=== PATIENT | female | born 1945 | race Caucasian/White ===

== ENCOUNTER 2017-01-17 10:05 | Outpatient (CLI) | payer MEDICARE, BC ==
[2017-01-17 10:45] LABS: CREATININE 0.7 mg/dL (0.4-1.0)
[2017-01-17] MEDS ORDERED: IOPAMIDOL-300 100 ML VIAL IVP ONE (11:39)
--- NOTE | 2017-01-17 13:15 | XRAY Report ---
TWO-VIEW CHEST: 01/17/2017 CLINICAL INDICATION: Vocal cord paralysis. FINDINGS: Frontal and lateral views of the chest are compared to previous films of 07/06/2013. The cardiac silhouette is within normal limits. There is mild fullness of the left hilum. Consider ches t CT for further evaluation. No effusion or pneumothorax is seen. IMPRESSION: MILD LEFT HILAR FULLNESS, WHICH MAY REPRESENT VASCULAR STRUCTURES. GIVEN THE VOCAL CORD PARALYSIS, CONSIDER CHEST CT FOR FURTHER EVALUATION. JOB #: [id number] EXT JOB #:[id number]
--- NOTE | 2017-01-17 17:33 | CT Report ---
CT SOFT TISSUE NECK WITH CONTRAST INDICATION: 71-year-old female with paralysis of vocal cords and larynx. TECHNIQUE: 100 mL of Isovue-300 contrast were injected intravenously. The neck was scanned helically and data wa s reconstructed into 2 mm axial images. In addition, sagittal and coronal reformations have been gene rated. In accordance with CT protocol optimization, one or more of the following dose reduction techniques w ere utilized for this exam: automated exposure control, adjustment of mA and/or KV based on patient s ize, or use of iterative reconstructive technique. COMPARISON: None. FINDINGS: The nasopharyngeal and oropharyngeal soft tissues are unremarkable. Noted is paramedian displacement of the internal carotid arteries, more prominent on the left. There is associated distortion of the r etropharyngeal soft tissues. This is only important in that these finding should not be mistaken for pulsatile submucosal retropharyngeal masses on clinical exam. There is asymmetric, paramedian displacement of the right vocal fold. There is minimal asymmetric dil atation of right laryngeal ventricle. However, there is definite, asymmetric dilatation of the right pyriform sinus. These findings are consistent with the lateral paralysis of the right vocal cord. No evidence of vagal nerve or other mass lesion in right carotid space. In addition, no obvious mass les ion is demonstrated in the right tracheoesophageal groove to suggest a potential etiology for patholo gy in the right recurrent laryngeal nerve. No significant pathology is identified in the imaged upper mediastinum. In particular, no mass lesion is demonstrated. No obvious etiology for the right-sided vocal cord paralysis is demonstrated. The larynx is otherwise unremarkable. No enhancing mass lesion is demonstrated. The imaged trachea has a normal appearance. There is a roughly 3.5 x 2 mm hypodensity in right lobe of thyroid, almost certainly representing viri ign disease (colloid cyst or adenoma closing). The thyroid is otherwise unremarkable. The submandibul ar and parotid glands have a normal appearance. A few normal sized intraparotid lymph nodes are demon strated. There is minor atherosclerotic disease at the right carotid bifurcation without associated stenosis. The left vertebral artery demonstrates multifocal, severe stenosis throughout its course in the neck. Dominant right vertebral artery appears patent throughout. Internal jugular veins are patent. A few normal sized, well-circumscribed, nonnecrotic lymph nodes are identified in the neck. No lymph nodes meeting the size criterion for malignancy are demonstrated and no necrotic lymph nodes are seen. No focal mass/nodule is demonstrated in the imaged upper lungs. Degenerative changes are seen in the cervical spine. The regional bony structures are otherwise unrem arkable. No lytic or destructive bone lesion is demonstrated. The mastoid air cells and middle ear cavities are clear. The imaged paranasal sinuses appear clear. N o mass is identified in either orbit. No obvious acute pathology is seen in the imaged brain. IMPRESSION: 1. Asymmetric paramedian displacement of right vocal fold with asymmetric dilatation right pyriform s inus. Imaging findings are consistent with unilateral, right-sided vocal cord paralysis. No obvious e tiology for right vagal nerve or recurrent laryngeal nerve dysfunction is identified. In particular, no evidence of mass lesion at the right jugular fossa or in the right carotid space or right tracheoe sophageal groove. 2. Small lesion right lobe of thyroid (see above), almost certainly a benign finding. 3. Imaging of the neck is otherwise unremarkable. Referring Provider Line: [phone] SITE ID: [id number]
== END 2017-01-17 10:06 | disposition home or self-care (01) ==
LOC: DI 10:05
PROVIDERS: ATTEND Otolaryngology
DX: J38.00 Paralysis of vocal cords and larynx, unspecified (principal); R13.19 Other dysphagia; R49.0 Dysphonia; E07.9 Disorder of thyroid, unspecified
CPT/HCPCS: 36415; 70491; 71020; 82565; 84520; Q9967

== ENCOUNTER 2017-01-28 11:48 | Outpatient (CLI) | payer MEDICARE, BC ==
[2017-01-28] MEDS ORDERED: IOPAMIDOL-300 100 ML VIAL IVP ONE (12:51)
--- NOTE | 2017-01-28 19:20 | CT Report ---
CT CHEST WITH CONTRAST: 01/28/2017 CLINICAL INDICATION: Unilateral vocal cord paralysis. TECHNIQUE: Axial CT images of the chest were obtained with 100 mL Isovue-300 intravenously. No prev ious chest CT is available for comparison. Comparison is made to neck CT of 01/17/2017. In accordance with CT protocol optimization, one or more of the following dose reduction techniques w ere utilized for this exam: automated exposure control, adjustment of mA and/or KV based on patient size, or use of iterative reconstructive technique. FINDINGS: The heart and great vessels demonstrate mild atherosclerotic calcification. No hilar or m ediastinal lymphadenopathy is identified. The lungs are clear. No effusion or pneumothorax is prese nt. Osseous structures demonstrate degenerative changes. Limited evaluation of upper abdominal stru ctures demonstrates fatty infiltration of the liver and splenules posterior to the spleen. IMPRESSION: NO EVIDENCE OF PULMONARY MALIGNANCY OR ADENOPATHY TO EXPLAIN VOCAL CORD PARALYSIS. JOB #: [id number] EXT JOB #:[id number]
== END 2017-01-28 11:49 | disposition home or self-care (01) ==
LOC: DI 11:48
PROVIDERS: ATTEND Otolaryngology
DX: J38.00 Paralysis of vocal cords and larynx, unspecified (principal); R13.19 Other dysphagia
CPT/HCPCS: 71260; Q9967

== ENCOUNTER 2018-10-11 13:33 | Outpatient (CLI) | payer MEDICARE, BC ==
--- NOTE | 2018-10-11 15:48 | XRAY Report ---
Reason: LEFT MEDIAL MALLEOLUS FX Procedure Date: 10/11/2018 Accession Number: [id number] / [id number] Procedure: XR - Ankle 3 View LT CPT Code: FULL RESULT: EXAM: LEFT ANKLE RADIOGRAPHY EXAM DATE: 10/11/2018 01:56 PM. CLINICAL HISTORY: Left medial malleolus fracture. COMPARISON: None. TECHNIQUE: 3 views. FINDINGS: Bones: Mild posterior calcaneal spurring. No fractures or bone lesions. Joints: Normal. No effusion. No subluxations. The ankle mortise is normally aligned. Soft Tissues: Mild soft tissue swelling medially. IMPRESSION: No fracture is seen in the region of the medial malleolus. RADIA
== END 2018-10-11 13:34 | disposition home or self-care (01) ==
LOC: DI 13:33
PROVIDERS: ATTEND Specialist
DX: S82.52XS Displaced fracture of medial malleolus of left tibia, sequela (principal)

== ENCOUNTER 2019-01-11 08:11 | Day surgery (SDC) | payer MEDICARE, BC ==
[~2019-01-11 08:11] MED LIST: CYCLOPENTOLATE 1% OPHTH DROPS 2 ML ONE; KETOROLAC 0.45% OPHTH DROPS ONE; PHENYLEPHRINE 2.5% OPHTH 2 ML DROPS ONE; PROPARACAINE 0.5% OPHTH DROPS 15 ML ONE
[2019-01-11] MEDS ORDERED: CYCLOPENTOLATE 1% OPHTH DROPS 2 ML RIGHTEYE ONE (08:32)
[2019-01-11] MEDS ORDERED: PHENYLEPHRINE 2.5% OPHTH 2 ML DROPS RIGHTEYE ONE (08:32)
[2019-01-11] MEDS ORDERED: PROPARACAINE 0.5% OPHTH DROPS 15 ML RIGHTEYE ONE (08:32)
[2019-01-11] MEDS ORDERED: KETOROLAC 0.45% OPHTH DROPS RIGHTEYE ONE (08:32)
--- NOTE | 2019-01-11 08:36 | ANESTHESIA ---
Pre-Anesthesia VS, & Labs - Diagnosis R eye senile combined cataract - Procedure R extraction cataract w/IOL Height 4 ft 11 in Body Mass Index 30.2 - NPO >8 hours - Is Patient ?: No Home Medications and Allergies Home Medications: Ambulatory Orders Valsartan [Diovan] 80 mg PO DAILY 01/10/19 Valsartan [Diovan] 80 mg PO DAILY 01/10/19 Allergies/Adverse Reactions: Allergies Allergy/AdvReac Type Severity Reaction Status Date / Time No Known Drug Allergies Allergy Verified 01/10/19 15:10 Anes History & Medical History - Anesthetic History Anesthesia Complications: reports: No previous complications Family history of Anesthesia Complications: Denies Family history of Malignant Hyperthermia: Denies - Medical History Cardiovascular: reports: Hypertension, High cholesterol Pulmonary: reports: None Gastrointestinal: reports: GERD Musculoskeletal: reports: None Endocrine/Autoimmune: reports: None Skin: reports: None - Surgical History General: Colonoscopy Orthopedic: Carpal Tunnel surgery Exam General: Alert, Oriented x3, Cooperative Mouth Openin Fingerbreadth Neck Mobility: Normal Mallampati classification: II Thyromental Distance: 4-6 cm Respiratory: Normal breath sounds Cardiovascular: Regular rate Neurological: Normal speech Mental/Cognitive Status: Alert/Oriented X3, Normal for patient Plan Anesthesia Type: MAC Consent for Procedure(s) Verified and Reviewed: Yes Code Status: Attempt Resuscitation ASA classification: 2-Mild systemic disease Is this case an emergency?: No
[2019-01-11] MEDS ORDERED: LACTATED RINGERS 500 ML IV ONE (08:42)
[2019-01-11] MEDS ORDERED: TRIAMCIN/MOXIFLOX OPHTHALMIC 0.6 ML VIAL IO ONE ×2 (09:28→10:57)
[2019-01-11] MEDS ORDERED: EPINEPHrine 1 MG/ML AMP IVP ONE (09:28)
[2019-01-11] MEDS ORDERED: TIMOLOL 0.5% OPHTH DROPS OPTH ONE (09:28)
[2019-01-11] MEDS ORDERED: CHONDR SULF/HYALURONATE SYRINGE IO ONE (09:28)
[2019-01-11] MEDS ORDERED: BSS/LIDOCAINE/EPINEPHRINE 1 ML SYRINGE IO ONE (09:28)
[2019-01-11] MEDS ORDERED: BRIMONIDINE 0.2% OPHTH DROPS 5 ML OPTH ONE (09:28)
[2019-01-11] MEDS ORDERED: VANCOMYCIN OPHTHALMI 8MG/0.8ML 8 MG/0.8 ML SYRINGE IO ONE ×2 (09:29→10:57)
[2019-01-11] MEDS ORDERED: MIDAZOLAM 2 MG/2 ML VIAL IVP ONE (09:33)
[2019-01-11 10:01] VITALS: BP 129/62
--- NOTE | 2019-01-11 10:11 | OPERATIVE REPORT ---
DATE OF SERVICE: 01/11/2019 Physician: Raul Rodriguez MD PREOPERATIVE DIAGNOSIS: Visually significant cataract, right eye. This was her first cataract surge ry. POSTOPERATIVE DIAGNOSIS: Visually significant cataract, right eye. This was her first cataract surg michelle. PROCEDURE: Phacoemulsification with posterior chamber intraocular lens implant, right eye. SURGEON: Raul Rodriguez MD ANESTHESIA: Monitored anesthesia care. COMPLICATIONS: None. OPERATIVE INDICATIONS: This is a 73-year-old woman with progressive vision loss in the right eye due to 2+ nuclear sclerotic, 2 to 3+ cortical, 2+ posterior subcapsular and vacuolar cataract. Best cor rected visual acuity was 20/40, with glare to hand motion vision in the right eye. Indications for s urgery were overall decrease in vision, difficulty seeing words on the computer screen, difficulty re ading; difficulty seeing words, closed captions or game scores on TV; difficulty seeing street signs, difficulty driving in low light or at night, difficulty driving at night because of headlights from other vehicles, difficulty with glare or bright lights in any situation, and difficulty tracking a go lf ball. She was consented at length concerning risks and benefits of cataract surgery, after which she expressed a desire to proceed with surgery. OPERATIVE PROCEDURE: Patient was taken into OR #3 and placed under monitored anesthesia care. Surgi silvia timeout was conducted confirming the correct patient, correct procedure, and correct surgical sit e. She was given topical anesthesia, and then prepped and draped in the usual sterile fashion. The eye was entered at the 12 and 9 o'clock positions. Intracameral Shugarcaine was injected into the an terior chamber, followed by Viscoat. A continuous-tear curvilinear capsulorrhexis was performed. Nu cleus was hydrodissected and phacoemulsified. Cortex was evacuated using automated infusion and aspi ration. Provisc was injected into the capsular bag, and a 17.0 diopter intraocular lens was inserted in the bag. Approximately 0.8 mL of a mixture of triamcinolone, moxifloxacin, and vancomycin was in jected subconjunctivally in the superior quadrant for infection and inflammation prophylaxis. I and A was used to evacuate the viscoelastic materials. The eye was inflated to physiologic pressure usin g a balanced salt solution and found to be watertight. Patient was taken from the operating room in good condition and given postoperative instructions. TD: 01/11/2019 09:49
[2019-01-11] MEDS ORDERED: BRIMONIDINE 0.2% OPHTH DROPS 5 ML ONE (10:57)
[2019-01-11] MEDS ORDERED: TIMOLOL 0.5% OPHTH DROPS ONE (10:57)
[2019-01-11] MEDS ORDERED: BSS/LIDOCAINE/EPINEPHRINE 1 ML SYRINGE ONE (10:57)
[2019-01-11] MEDS ORDERED: EPINEPHrine 1 MG/ML AMP ONE (10:57)
== END 2019-01-11 08:12 | disposition home or self-care (01) ==
LOC: SDS 08:11
PROVIDERS: ATTEND Ophthalmology
PROC: 08RJ3JZ Replacement of Right Lens with Synthetic Substitute, Percutaneous Approach (ICD-10-PCS; principal; 2019-01-11 09:30)
DX: H25.811 Combined forms of age-related cataract, right eye (principal); K21.9 Gastro-esophageal reflux disease without esophagitis; H35.371 Puckering of macula, right eye; H35.341 Macular cyst, hole, or pseudohole, right eye; H40.053 Ocular hypertension, bilateral; I10 Essential (primary) hypertension; E78.00 Pure hypercholesterolemia, unspecified
CPT/HCPCS: 66984; A9270; J3490; V2632

== ENCOUNTER 2019-02-22 07:14 | Day surgery (SDC) | payer MEDICARE, BC ==
[2019-02-22] MEDS ORDERED: MIDAZOLAM 2 MG/2 ML VIAL IVP ONE (07:15)
[2019-02-22] MEDS ORDERED: PHENYLEPHRINE 2.5% OPHTH 2 ML DROPS LEFTEYE ONE (07:25)
[2019-02-22] MEDS ORDERED: KETOROLAC 0.45% OPHTH DROPS LEFTEYE ONE (07:25)
[2019-02-22] MEDS ORDERED: PROPARACAINE 0.5% OPHTH DROPS 15 ML LEFTEYE ONE ×2 (07:25→08:39)
[2019-02-22] MEDS ORDERED: CYCLOPENTOLATE 1% OPHTH DROPS 2 ML LEFTEYE ONE (07:25)
[2019-02-22] MEDS ORDERED: LACTATED RINGERS 1,000 ML IV ONE (07:35)
--- NOTE | 2019-02-22 08:09 | ANESTHESIA ---
Pre-Anesthesia VS, & Labs - Diagnosis senile combined cataract left eye - Procedure cataract extraction with IOL left eye Vital Signs: Temp Pulse Resp BP Pulse Ox 36.6 C 75 16 170/84 H 98 02/22/19 07:18 02/22/19 07:18 02/22/19 07:18 02/22/19 07:18 02/22/19 07:18 Height 4 ft 11 in Weight (kg) 71.4 kg Body Mass Index 30.2 - NPO >8 hours - Is Patient ?: No Home Medications and Allergies Valsartan [Diovan] 80 mg PO DAILY 01/10/19 Allergies/Adverse Reactions: Allergies Allergy/AdvReac Type Severity Reaction Status Date / Time No Known Drug Allergies Allergy Verified 02/21/19 14:05 Anes History & Medical History - Anesthetic History Anesthesia Complications: reports: No previous complications - Medical History Cardiovascular: reports: Hypertension Pulmonary: reports: None Gastrointestinal: reports: None Urinary: reports: None Neuro: reports: None Musculoskeletal: reports: None Endocrine/Autoimmune: reports: None Skin: reports: None Smoking Status: Never smoker Psychosocial: reports: No issues indicated - Surgical History General: Appendectomy Eyes Ears Nose Throat (EENT): Cataracts, Tonsil/Adenoidectomy Urologic: Bladder surgery Gynecologic: Hysterectomy Orthopedic: Carpal Tunnel surgery Exam General: Alert, Oriented x3, Cooperative, No acute distress Dental: WNL Mouth Openin Fingerbreadth Neck Mobility: Normal Mallampati classification: II Thyromental Distance: 4-6 cm Mental/Cognitive Status: Alert/Oriented X3, Normal for patient Plan Anesthesia Type: MAC Consent for Procedure(s) Verified and Reviewed: Yes Code Status: Attempt Resuscitation ASA classification: 2-Mild systemic disease Is this case an emergency?: No
[2019-02-22] MEDS ORDERED: CHONDR SULF/HYALURONATE SYRINGE IO ONE (08:38)
[2019-02-22] MEDS ORDERED: EPINEPHrine 1 MG/ML AMP IVP ONE (08:38)
[2019-02-22] MEDS ORDERED: BRIMONIDINE 0.2% OPHTH DROPS 5 ML OPTH ONE (08:38)
[2019-02-22] MEDS ORDERED: TRIAMCIN/MOXIFLOX OPHTHALMIC 0.6 ML VIAL IO ONE ×2 (08:39→09:21)
[2019-02-22] MEDS ORDERED: TIMOLOL 0.5% OPHTH DROPS OPTH ONE (08:39)
[2019-02-22] MEDS ORDERED: BSS/LIDOCAINE/EPINEPHRINE 1 ML SYRINGE IO ONE (08:39)
[2019-02-22] MEDS ORDERED: VANCOMYCIN OPHTHALMI 8MG/0.8ML 8 MG/0.8 ML SYRINGE IO ONE ×2 (08:40→09:21)
[2019-02-22 09:12] VITALS: BP 105/88
[2019-02-22] MEDS ORDERED: BRIMONIDINE 0.2% OPHTH DROPS 5 ML ONE (09:21)
[2019-02-22] MEDS ORDERED: EPINEPHrine 1 MG/ML AMP ONE (09:21)
[2019-02-22] MEDS ORDERED: TIMOLOL 0.5% OPHTH DROPS ONE (09:21)
[2019-02-22] MEDS ORDERED: BSS/LIDOCAINE/EPINEPHRINE 1 ML SYRINGE ONE (09:21)
--- NOTE | 2019-02-22 09:30 | OPERATIVE REPORT ---
DATE OF SERVICE: 02/22/2019 Physician: Raul Rodriguez MD PREOPERATIVE DIAGNOSIS: Visually significant cataract, left eye. Cataract surgery was performed on her right eye on 01/11/2019. POSTOPERATIVE DIAGNOSIS: Visually significant cataract, left eye. Cataract surgery was performed on her right eye on 01/11/2019. PROCEDURE: Phacoemulsification with posterior chamber intraocular lens implant, left eye. SURGEON: Raul Rodriguez MD ANESTHESIA: Monitored anesthesia care. COMPLICATIONS: None. OPERATIVE INDICATIONS: This is a 73-year-old woman with progressive vision loss in the left eye due to 2+ nuclear sclerotic, 2+ cortical and 2+ posterior subcapsular cataract. Best corrected visual ac uity was 20/40, with glare to hand motion vision in the left eye. Indications for surgery are overal l decrease in vision, difficulty seeing words on a computer screen, difficulty reading, difficulty se eing words, closed caption or game scores on TV, difficulty driving in low light or at night, difficu lty with glare or bright lights in any situation, and difficulty tracking a golf ball. She was conse nted at length concerning risks and benefits of cataract surgery, after which she expressed a desire to proceed with surgery. OPERATIVE PROCEDURE: Patient was taken into OR #3 and placed under monitored anesthesia care. Surgi silvia timeout was conducted confirming correct patient, correct procedure, and correct surgical site. She was given topical anesthesia, then prepped and draped in the usual sterile fashion. The eye was entered at the 6 and 3 o'clock positions. Intracameral Shugarcaine was injected into the anterior ch jax, followed by Viscoat. A continuous-tear curvilinear capsulorrhexis was performed. The nucleus was hydrodissected and phacoemulsified. The cortex was evacuated using automated infusion and aspir ation. Provisc was injected in the capsular bag, and a 17.5 diopter intraocular lens inserted in the bag. Approximately 0.8 mL of a mixture of triamcinolone, moxifloxacin and vancomycin was injected s ubconjunctivally in the superior quadrant for infection and inflammation prophylaxis. I and A was us ed to evacuate the viscoelastic materials. The eye was inflated to physiologic pressure using balanc ed salt solution and found to be watertight. Patient was taken from the operating room in good condi tion and given postoperative instructions. TD: 02/22/2019 09:03
== END 2019-02-22 07:15 | disposition home or self-care (01) ==
LOC: SDS 07:14
PROVIDERS: ATTEND Ophthalmology
PROC: 08RK3JZ Replacement of Left Lens with Synthetic Substitute, Percutaneous Approach (ICD-10-PCS; principal; 2019-02-22 08:30)
DX: H25.812 Combined forms of age-related cataract, left eye (principal); I10 Essential (primary) hypertension; E78.00 Pure hypercholesterolemia, unspecified
CPT/HCPCS: 66984; A9270; J3490; J7120; V2632

== ENCOUNTER 2024-08-03 14:49 | Observation (INO) ==
--- NOTE | 2024-08-03 16:12 | ED Physician Documentation ---
History of Present Illness Stated complaint Stated Complaint: HIGH BP,DIZZINESS Chief complaint Chief Complaint: Cardiac History obtained from History obtained from: Patient History of Present Illness Timing: Prior to arrival Additonal information Additional information: Patient is a 79-year-old generally healthy pleasant female presenting with past medical history of hypertension. She notes over the last 3 to 4 days she had these episodes of loss of hearing in her right ear and additionally whooshing and palpable pulses in her neck. She notes these were accompanied with dizzy symptoms which felt as if the room was spinning around her. She has a history of vertigo but these do not feel similar. She takes her valsartan daily has been on it for about 25 years and has been compliant with it no missed doses. She notes while she was at home she was taking her blood pressure and notably was in the 200s. She notes this is very abnormal for her. She denies any new stressors she denies any chest pain or shortness of breath no lower leg swelling with her symptoms she has no history of coronary artery disease, CVA or CHF history. Meds/Allgy Home Medications Ambulatory Orders Medication Instructions Recorded Confirmed valsartan 80 mg tablet (Diovan) 80 mg PO DAILY 01/10/19 02/21/19 Allergies Allergies Allergy/AdvReac Type Severity Reaction Status Date / Time No Known Drug Allergies Allergy Verified 08/03/24 14:55 PENDING SALE TO [facility] Medical History Medical History (Updated 08/03/24 @ 21:01 by Faraz Murphy DNP) Hypertension Social History Social History Smoking Status: Never smoker Do you feel safe in your home environment?: Yes Suffered physical, verbal, emotional, or financial abuse?: No Exam Constitutional normal general appearance HENMT normocephalic and head/scalp atraumatic Eyes PERRL, EOMs intact bilaterally and conjunctivae normal Neck/C-Spine visual inspection normal Lymph no lymphadenopathy noted Chest inspection of chest normal Respiratory breath sounds equal bilaterally, normal respiratory effort and clear to auscultation bilaterally Cardiovascular normal heart rate noted, regular rhythm noted, no gallop, no rub and no murmur Genitourinary no CVA tenderness Back/Pelvis spine normal to inspection Extremities normal to inspection Palpable pulses in distal extremities Skin skin color normal Good capillary refill < 3 seconds Results Vitals Vitals: Vital Signs - 24 hr 08/03/24 14:55 08/03/24 16:11 08/03/24 17:15 Temperature 36.8 C Temperature Source Skin Pulse Rate 88 86 78 Respiratory Rate 18 22 15 Blood Pressure 217/94 H 211/81 H 153/77 H O2 Saturation 99 98 97 O2 Source Room air Room air Room air Pain Intensity 0 0 08/03/24 18:01 08/03/24 18:38 08/03/24 20:48 Temperature Temperature Source Pulse Rate 84 91 84 Respiratory Rate 14 18 16 Blood Pressure 183/95 H 180/103 H 192/100 H O2 Saturation 97 99 100 O2 Source Room air Room air Room air Pain Intensity 0 0 Oxygen O2 Source Room air Labs Labs: Laboratory Tests 08/03/24 16:30 WBC 8.4 RBC 5.19 Hgb 15.7 Hct 47.3 H MCV 91.1 MCH 30.3 MCHC 33.2 RDW 13.1 Plt Count 136 MPV 9.5 Neut # (Auto) 6.3 Lymph # (Auto) 1.1 L Morrison # (Auto) 0.7 Eos # (Auto) 0.2 Baso # (Auto) 0.0 Absolute Nucleated RBC 0.00 Nucleated RBC % 0.0 Sodium 140 Potassium 3.8 Chloride 103 Carbon Dioxide 29 Anion Gap 8.0 BUN 15 Creatinine 0.7 Estimated GFR (MDRD) 81 L Glucose 85 Calcium 9.7 Magnesium 2.3 Total Bilirubin 0.6 AST 21 ALT 15 Alkaline Phosphatase 74 Troponin I High Sens 6.2 Total Protein 7.0 Albumin 4.3 Globulin 2.7 Albumin/Globulin Ratio 1.6 Rads (name of study) Chest X-ray: Relevant Findings:: Prelim report reviewed, Final report received and EMP independent interpretation of test Interpretation: No acute cardiopulmonary process. CT head wo: Relevant Findings:: EMP independent interpretation of test PD Medical Decision Making ED course Complexity details: reviewed old records and reviewed results ED course: Patient is a 79-year-old female presenting to the emergency department with elevated blood no symptoms have been on for about 3 to 4 days that she initially did not notice her elevated blood pressure readings until she took this afternoon when she was feeling pulses in her neck. She notes she takes valsartan religiously and has not missed a dose she has been on this medication for 20 years no chest pain no lower leg swelling no shortness of breath associate with her symptoms. She is generally otherwise overall healthy. She is not on any blood thinners she describes some fading on the right side of her neck of her ear when these episodes would occur. She has tinnitus at baseline but these do not feel similar. She describes feeling off balance and room spinning with her symptoms. Vitals here in the emergency department noticeably elevated blood pressure reading on arrival SBP 211. He is nontachycardic afebrile saturating well on room air at 99%. Chest x-ray shows no acute cardiopulmonary findings. CBC here is unremarkable no leukocytosis. CMP shows no significant electrolyte abnormality GFR is stable. Magnesium within normal range. EKG shows no ST elevation. Troponin within normal range. Patient was given a dose of hydralazine as well as a new medication for patient hydrochlorothiazide on arrival. Patient blood pressure did begin to trend down with blood pressure of 155 here in the ED when patient was taken for CT scan returned she did have an increase in blood pressure again to the 180s but she is asymptomatic at this time. Pending CT head/ neck at this time. CTA head and neck received call from radiology Dr. Hoffman who notes her left vertebral V2 V3 segment is 100% occluded which could explain her dizziness and loss of hearing.75% stenosis also noted on internal carotid as well. These findings are new compared to CTA in 2016. 1937: Discussed case with on-call teleneurology who recommends MRI for tomorrow with possible echo and starting on aspirin and atorvastatin. Nicardipine drip ordered by hospitalist and patient will go to the floor. Discussed treatment for decrease in blood pressure by 20% and slowly monitoring blood pressure and titrating drip until within normal range. Hospitalist and pateint agreeable with this plan. 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
--- NOTE | 2024-08-03 16:30 | XRAY Report ---
PROCEDURE: XR Chest 1V INDICATIONS: sob, cp TECHNIQUE: One view of the chest was acquired. COMPARISON: 01/17/2017. FINDINGS: Surgical changes and devices: None. Lungs and pleura: No pleural effusions or pneumothorax. No consolidation. Mediastinum: Mediastinal contours appear normal. Heart size is normal. Bones and chest wall: No suspicious bony lesions. Overlying soft tissues appear unremarkable. IMPRESSION: No acute cardiopulmonary process. Reviewed by: Romulo Coombs MD on 08/03/2024 4:28 PM PST Approved by: Romulo Coombs MD on 08/03/2024 4:28 PM PST Station ID: [id number]
[2024-08-03 16:42] LABS: BASOPHILS % (AUTO) 0.4 %; EOSINOPHILS # (AUTO) 0.2 10^3/uL (0.0-0.7); EOSINOPHILS % (AUTO) 2.5 %; HCT - HEMATOCRIT 47.3 % (37.0-47.0); HGB - HEMOGLOBIN 15.7 g/dL (12.0-16.0); LYMPHOCYTES # (AUTO) 1.1 10^3/uL (1.5-3.5); LYMPHOCYTES % (AUTO) 12.9 %; MEAN CORPUSCULAR HEMOGLOBIN 30.3 pg (27.0-31.0); MEAN CORPUSCULAR HGB CONC 33.2 g/dL (32.0-36.0); MEAN CORPUSCULAR VOLUME 91.1 fL (81.0-99.0); MEAN PLATELET VOLUME 9.5 fL (7.9-10.8); MONOCYTES # (AUTO) 0.7 10^3/uL (0.0-1.0); MONOCYTES % (AUTO) 8.6 %; NEUTROPHILS # (AUTO) 6.3 10^3/uL (1.5-6.6); NEUTROPHILS % (AUTO) 75.4 %; PLT - PLATELET COUNT 136 10^3/uL (130-450); RED BLOOD COUNT 5.19 10^6/uL (4.20-5.40); RED CELL DISTRIBUTION WIDTH 13.1 % (12.0-15.0); WHITE BLOOD COUNT 8.4 x10^3/uL (4.8-10.8)
[2024-08-03 16:47] LABS: MAGNESIUM 2.3 mg/dL (1.7-2.3)
[2024-08-03 16:53] LABS: ALBUMIN 4.3 g/dL (3.2-5.5); ALBUMIN/GLOBULIN RATIO 1.6 (1.0-2.2); BILIRUBIN,TOTAL 0.6 mg/dL (0.2-1.0); CALCIUM 9.7 mg/dL (8.5-10.3); CREATININE 0.7 mg/dL (0.6-1.3); POTASSIUM 3.8 mmol/L (3.5-4.5)
[2024-08-03] MEDS: hydrALAZINE INJ 20 MG/ML VIAL IVP STA (17:07)
[2024-08-03] MEDS: hydroCHLOROthiazide 25 MG TABLET PO STA (17:07)
[2024-08-03] MEDS ORDERED: iohexoL-300 100 ML VIAL ONE (18:05)
[2024-08-03] MEDS: iohexoL-300 100 ML VIAL IVP ONE (18:48)
--- NOTE | 2024-08-03 19:05 | CT Report ---
PROCEDURE: CT Head WO INDICATIONS: dizziness, persistent TECHNIQUE: Noncontrast 4.5 mm thick angled axial sections acquired from the foramen magnum to the vertex. For r adiation dose reduction, the following was used: automated exposure control, adjustment of mA and/or kV according to patient size. COMPARISON: 11/19/2015 FINDINGS: Image quality: Excellent. CSF spaces: Basal cisterns are patent. No extra-axial fluid collections. Ventricles are normal in size and shape. Brain: No midline shift. No intracranial masses or hemorrhage. Clarke-white matter interface is norm al. Skull and face: Calvarium and visualized facial bones are intact, without suspicious lesions. Sinuses: Visualized sinuses and mastoids are clear. IMPRESSION: No acute intracranial pathology. Reviewed by: Lambert Hoffman MD on 08/03/2024 7:03 PM PST Approved by: Lambert Hoffman MD on 08/03/2024 7:03 PM PST Station ID: [id number]
--- NOTE | 2024-08-03 19:12 | CT Report ---
PROCEDURE: CT Angio Head/Neck INDICATIONS: concern for ischemia, dizziness, TECHNIQUE: After the administration of intravenous contrast, 1 mm thick sections acquired from the aortic arch t hrough the [place] of [place]. 3-dimensional dlpiuar-yynovjpbs-hwgptphopx (MIP) and/or volume renderin g reformats were acquired of the central intracranial vasculature and neck separately. For radiation dose reduction, the following was used: automated exposure control, adjustment of mA and/or kV acco rding to patient size. CONTRAST: omni 300, 100 COMPARISON: None. FINDINGS: Image quality: Diagnostic. HEAD CT: CSF Spaces: Basal cisterns are patent. No extra-axial fluid collections. Ventricles are normal in size and shape. Brain: No significant abnormality is seen for scanning technique. Skull and face: Calvarium and visualized facial bones appear intact, without suspicious lesions. Sinuses: Visualized sinuses and mastoids are clear. HEAD CT ANGIOGRAPHY: Anterior circulation: Intracranial internal carotid arteries are normal in size and flow. The flow within the paired anterior cerebral arteries is normal and symmetric. The flow within the middle cer ebral arteries is normal and symmetric. The anterior communicating artery is seen. No aneurysms are seen. Posterior circulation: Visualized portions of the vertebral arteries demonstrate normal caliber, and join to form a normal appearing basilar artery. Flow within the posterior cerebral arteries is norm al and symmetric. No aneurysms are seen. NECK CT ANGIOGRAPHY: Carotid system: The great vessels demonstrate a conventional anatomy as they arise from the aortic a rch. The origins of the common carotid arteries appear patent. The common carotid arteries demonstr ate normal caliber and courses. 75% stenosis of the proximal left internal carotid artery by soft huber que. Posterior circulation: The origins of the left vertebral artery is occluded, with reconstitution at the V3 segment, which remains diminutive. The more superior extracranial portions of both vertebral arteries also demonstrate normal courses and calibers. They join to form a normal appearing basilar artery. Soft tissues: Visualized neck soft tissues demonstrate no suspicious abnormalities. Bones: No suspicious bony lesions. Visualized cervical spine appears normally aligned. IMPRESSION: No significant intracranial arterial abnormality is seen. 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 This type of plaque will have a high risk of rupture/embolization. Consider vascular surgery referral. Above discussed with Lona Rowe PA-C at the 7:10 PM on 08/03/2024. The estimate of stenosis included in the report of the imaging study was calculated using the NASCET method Reviewed by: Lambert Hoffman MD on 08/03/2024 7:10 PM PST Approved by: Lambert Hoffman MD on 08/03/2024 7:10 PM PST Station ID: [id number]
[2024-08-03] MEDS: ATORVASTATIN 40 MG TABLET PO STA (19:50)
[2024-08-03] MEDS: ASPIRIN 325 MG TABLET PO STA (19:50)
[2024-08-03] MEDS ORDERED: NICARDIPINE HCL 25 MG in SODIUM CHLORIDE 0.9% 240 ML IV PRN (20:26)
--- NOTE | 2024-08-03 21:06 | HISTORY & PHYSICAL EXAMINATION ---
Chief Complaint Chief Complaint Chief Complaint: High blood pressure History of Present Illness Admitted From Admitted From:: Home with History Obtained From History obtained from: Patient interview History of Present Illness HPI Comment/Other: Very active 79-year-old female with PMH significant for hypertension on valsartan, As well as remote history of vertigo. She noted dizziness over the past 3 to 4 days, loss of hearing in her right ear, audible whooshing in her neck. She has had episodes of vertigo before, and now she reports room spinning dizziness which is different from prior. She attempted Marleen maneuvers with no improvement. She woke up today to the sound of her own pulse. She checked her blood pressure and noted it was in the 200s systolic. She presented to the clinic, who sent her to the ER Meds/Allgy Home Medications Ambulatory Orders Medication Instructions Recorded Confirmed valsartan 80 mg tablet (Diovan) 80 mg PO DAILY 01/10/19 02/21/19 Allergies Allergies Allergy/AdvReac Type Severity Reaction Status Date / Time No Known Drug Allergies Allergy Verified 08/03/24 14:55 [facility] Medical History Medical History (Updated 08/03/24 @ 21:01 by Faraz Murphy DNP) Hypertension Social History Social History Smoking Status: Never smoker Do you feel safe in your home environment?: Yes Suffered physical, verbal, emotional, or financial abuse?: No Review of Systems Status of ROS: 10 or more systems reviewed and unremarkable except as noted in history and below Constitutional Denies: Fever or Chills Ears, nose, mouth, and throat Reports: Vertigo Cardiovascular Denies: Irregular heart rate, chest pain, palpitations or shortness of breath with exertion Respiratory Denies: Shortness of breath or Cough Gastrointestinal Denies: Abdominal pain or Abdominal distention Genitourinary Denies: Painful urination Neurological Reports: Dizziness and Vertigo; Denies: Headache, General weakness or Focal weakness Exam Exam Elderly female, well-groomed. Pacing the room out of boredom at time of my interview Constitutional normal general appearance and no apparent distress HENMT normocephalic and head/scalp atraumatic Eyes PERRL Neck/C-Spine visual inspection normal Lymph no lymphadenopathy noted Chest inspection of chest normal Respiratory breath sounds equal bilaterally and normal respiratory effort Cardiovascular normal heart rate noted and regular rhythm noted Gastrointestinal abdomen normal to inspection and abdomen soft to palpation Genitourinary bladder normal to palpation Extremities normal to inspection Neurology shoe stitcher odd II-XII intact and GCS 15 Psychiatry oriented x3 Skin skin color normal Conclusion/Plan Problem List (1) Occlusion of left vertebral artery: Plan: CTA performed in the ER showed left vertebral artery occlusion from the origin to the V3 segment, 75% stenosis of the left ICA by soft plaque Neurology was contacted by ER provider, Recommended follow-up MRI, echo, aspirin, atorvastatin Placed in observation Echo, MRI ordered Neurochecks every 4 Hypertension management as below EKG performed in ED, awaiting upload (2) Hypertensive emergency: Plan: Neurology recommended gradual blood pressure reduction with nicardipine drip She has been placed in the ICU in observation status so that she can receive nicardipine drip She takes valsartan 80 mg p.o. daily at home, anticipate increasing to 160 mg p.o. daily Continue home dose valsartan for now Plan Placed in observation Patient would like to remain full code, does not wish to be intubated She names her as her surrogate decision-maker Further ACP documentation in a separate note Lab Results Lab results reviewed: Yes 08/03/24 16:30 08/03/24 16:30 Diagnostic Imaging Results Diagnostic Imaging Results: positive Final report reviewed Diagnostic Imaging Results Comments: CTA head and neck with occlusions as described above Core Measures Anticipated LOS I expect patient to be DC'd or transferred within 96 hours.: Yes DVT/VTE - Prophylaxis VTE/DVT Prophylaxis med ordered at admit?: Yes Stroke - Rehab Assessment Rehab services assessment to be ordered?: Yes
--- NOTE | 2024-08-03 21:07 | HISTORY & PHYSICAL EXAMINATION ---
History of Present Illness History of Present Illness HPI Comment/Other: Very active 79-year-old female with PMH significant for hypertension on valsartan, As well as remote history of vertigo. She noted dizziness over the past 3 to 4 days, loss of hearing in her right ear, audible whooshing in her neck. She has had episodes of vertigo before, and now she reports room spinning dizziness which is different from prior. She attempted Marleen maneuvers with no improvement. She woke up today to the sound of her own pulse. She checked her blood pressure and noted it was in the 200s systolic. She presented to the clinic, who sent her to the ER In the ER, workup was significant for CTA head and neck with left vertebral through V3 segment 100% occlusion as well as 75% stenosis of ICA. Case was discussed with teleneurology, who recommends observation and MRI Meds/Allgy Home Medications Ambulatory Orders Medication Instructions Recorded Confirmed valsartan 80 mg tablet (Diovan) 80 mg PO DAILY 01/10/19 02/21/19 Allergies Allergies Allergy/AdvReac Type Severity Reaction Status Date / Time No Known Drug Allergies Allergy Verified 08/03/24 14:55 [facility] Medical History Medical History (Updated 08/03/24 @ 21:01 by Faraz Murphy DNP) Hypertension Social History Social History Smoking Status: Never smoker Do you feel safe in your home environment?: Yes Suffered physical, verbal, emotional, or financial abuse?: No Conclusion/Plan Problem List (1) Occlusion of left vertebral artery: Plan: CTA performed in the ER showed left vertebral artery occlusion from the origin to the V3 segment, 75% stenosis of the left ICA by soft plaque Neurology was contacted by ER provider, Recommended follow-up MRI, echo, aspirin, atorvastatin Placed in observation Echo, MRI ordered Neurochecks every 4 Hypertension management as below EKG performed in ED, awaiting upload (2) Hypertensive emergency: Plan: Neurology recommended gradual blood pressure reduction with nicardipine drip She has been placed in the ICU in observation status so that she can receive nicardipine drip She takes valsartan 80 mg p.o. daily at home, anticipate increasing to 160 mg p.o. daily Continue home dose valsartan for now Plan Placed in observation Patient would like to remain full code, does not wish to be intubated She names her as her surrogate decision-maker Further ACP documentation in a separate note Lab Results Lab results reviewed: Yes 08/03/24 16:30 08/03/24 16:30
--- NOTE | 2024-08-03 21:13 | ADVANCE CARE PLANNING NOTE ---
Advance Care Planning Planning Encounter Date: 08/03/24 Time: 21:10 Purpose: To discuss long-term goals of care, CODE STATUS Parties in Attendance: Patient Decisional Capacity of the Patient: Full Diagnosis for Encounter (1) Occlusion of left vertebral artery: Summary: Placed in observation so that she can undergo MRI (2) Hypertensive emergency: Summary: In ICU for nicardipine drip for slow blood pressure correction Encounter Subjective/Patient's Story: 79-year-old female, very healthy, very active. She maintains a very active lifestyle. She says that she is on her feet from when she wakes up until she goes to bed. When I talk to her, she stood during the entire interview and moved around as much as was allowed by her bedside ekg monitor. She enjoys painting, and training her dog. She has a miniature Ethiopian Eng that she spends a lot of time and training with. She has a house on [place] outside of [place], and is very active in maintaining this property. She is very anxious to return home and continue life as previously with her Objective/Medical Story: She is seen at one of the [facility] clinics, does not remember the name of her PCP. The only medication she takes is valsartan for hypertension. She reports also using a director of midwifery/staff midwife so that she can optimize her health status and reduce medication usage. She has had questions about medical care as she begins to age, and has been exposed to a lot of misinformation regarding what CODE STATUS means and what the ventilator means. She expressed concern that she would be starve to and put on a ventilator. Goals of Care: Goal is to return to normal level of function Plan: I explained what different parts of CODE STATUS mean to her. I described the CPR process. She would like to receive CPR if it is needed, but absolutely does not want to go on the ventilator for any reason. I explained that the ventilator is not curative and not necessarily long-term. I explained that the ventilator by this time to figure out what is going on and then further decision making would be performed by her surrogate decision maker. She expresses concern over the ventilator, she had recently lost a son in a traumatic accident and he was on a ventilator until they established brain . She would like to continue DNI status. She had questions about any documentation necessary for establishing her wishes. I assisted her in filling out a POLST form, and this is being scanned into the EMR Code Status: Attempt Resuscitation Time spent on advance care plannin
[2024-08-03] MEDS ORDERED: ONDANSETRON 4 MG/2 ML VIAL IVP PRN (21:28)
[2024-08-03] MEDS ORDERED: SODIUM CHLORIDE FLUSH 0.9% 10 ML SYRINGE IVP PRN (21:28)
[2024-08-03] MEDS ORDERED: IBUPROFEN 400 MG TABLET PO PRN (21:28)
[2024-08-03] MEDS ORDERED: ACETAMINOPHEN 325 MG TABLET PO PRN (21:28)
[2024-08-03] MEDS: ATORVASTATIN 40 MG TABLET PO SCH (21:55)
[2024-08-04] MEDS: SODIUM CHLORIDE FLUSH 0.9% 10 ML SYRINGE IVP SCH (02:49)
[2024-08-04 05:14] LABS: BASOPHILS % (AUTO) 0.5 %; EOSINOPHILS # (AUTO) 0.2 10^3/uL (0.0-0.7); EOSINOPHILS % (AUTO) 2.5 %; HCT - HEMATOCRIT 49.4 % (37.0-47.0); HGB - HEMOGLOBIN 16.2 g/dL (12.0-16.0); LYMPHOCYTES # (AUTO) 1.7 10^3/uL (1.5-3.5); LYMPHOCYTES % (AUTO) 19.6 %; MEAN CORPUSCULAR HEMOGLOBIN 29.9 pg (27.0-31.0); MEAN CORPUSCULAR HGB CONC 32.8 g/dL (32.0-36.0); MEAN CORPUSCULAR VOLUME 91.1 fL (81.0-99.0); MEAN PLATELET VOLUME 9.8 fL (7.9-10.8); MONOCYTES % (AUTO) 11.7 %; NEUTROPHILS # (AUTO) 5.6 10^3/uL (1.5-6.6); NEUTROPHILS % (AUTO) 65.3 %; PLT - PLATELET COUNT 135 10^3/uL (130-450); RED BLOOD COUNT 5.42 10^6/uL (4.20-5.40); RED CELL DISTRIBUTION WIDTH 13.1 % (12.0-15.0); WHITE BLOOD COUNT 8.5 x10^3/uL (4.8-10.8)
[2024-08-04 05:28] LABS: CALCIUM 9.2 mg/dL (8.5-10.3); CREATININE 0.7 mg/dL (0.6-1.3); MAGNESIUM 2.3 mg/dL (1.7-2.3); PHOSPHORUS 3.9 mg/dL (2.5-5.0); POTASSIUM 3.8 mmol/L (3.5-4.5)
[2024-08-04 05:41] LABS: CALCIUM, IONIZED 1.1 mmol/L (1.15-1.33); VBG PH 7.415 (7.31-7.41)
[2024-08-04] MEDS: NICARDIPINE HCL 25 MG in SODIUM CHLORIDE 0.9% 240 ML IV SCH (07:44)
[2024-08-04] MEDS: ASPIRIN EC 81 MG TABLET PO SCH (08:04)
[2024-08-04] MEDS: LOSARTAN 50 MG TABLET PO SCH (08:05)
--- NOTE | 2024-08-04 08:41 | PHARMACY PROGRESS NOTE ---
Best Possible Medication History Admit Date and Time: 08/03/24 [id number] Home Medications Medication Instructions Recorded Confirmed Type valsartan 80 mg tablet (Diovan) 80 mg PO DAILY 01/10/19 08/04/24 History Processed by: Pharmacy Medications reviewed in ED?: No Patient Interview: Completed Secondary Source(s): Pharmacy records and Insurance records [facility] Statement: As the person ultimately responsible for medication therapy, providers are able to order a medication from an existing home medication list in [facility] via the "Reconcile Routine" prior to Confirmation of that medication by account support associate. Such practice is discouraged except when the physician, in their clinical judgment, deems that a medical need exists for a medication without regard to previous use.
[2024-08-04 09:32] VITALS: TEMP 98.5
--- NOTE | 2024-08-04 12:22 | MRI Report ---
PROCEDURE: MRI Brain WO INDICATIONS: CVA workup TECHNIQUE: Noncontrast axial T1 spin echo, axial T2 fast spin echo, sagittal and axial FLAIR, coronal T2 fast sp in echo, axial gradient echo, axial diffusion and ADC through the brain. COMPARISON: Head CT dated 08/03/2024. FINDINGS: Image quality: Excellent. CSF Spaces: Basal cisterns are patent. No extra-axial fluid collections. Ventricles are normal in size and shape. Brain: No intracranial masses or hemorrhage. Scattered subcentimeter T2 hyperintensities are seen th roughout the subcortical and periventricular white matter. They show no diffusion restriction. Clarke/ white matter interface is normal. Brainstem appears normal. Diffusion-weighted images demonstrate n o acute ischemic insult. No chronic ischemic insults. Normal intravascular flow voids are present. Skull and face: Calvarium has normal marrow signal. Orbits appear normal. Sinuses: Sinuses and mastoids are clear. IMPRESSION: No evidence of acute or subacute ischemia. Scattered T2 hyperintensities throughout the brain which are nonspecific. The differential is wide an d includes demyelinating disease, microangiopathy, migraines, and other infectious/inflammatory etiol ogies. Reviewed by: Marina Vicente MD on 08/04/2024 11:21 AM [facility] Approved by: Marina Vicente MD on 08/04/2024 11:21 AM [facility] Station ID: [id number]
[2024-08-04 13:16] VITALS: BP 158/81; O2SAT 93
--- NOTE | 2024-08-04 13:48 | Discharge Summary ---
"Discharge Summary Admit Date: 08/03/24 Discharge Date: 08/04/24 Discharging Provider: Faraz Murphy NP Primary Care Provider: Sarah Irby Code Status: Attempt Resuscitation DIAGNOSES Admission Diagnoses: Vertebral artery occlusion Hypertensive emergency Discharge Diagnoses with Status of Each Condition: Vertebral artery occlusionactive Hypertensive emergencyresolved HPI History of Present Illness: Very active 79-year-old female with PMH significant for hypertension on valsartan, As well as remote history of vertigo. She noted dizziness over the past 3 to 4 days, loss of hearing in her right ear, audible whooshing in her neck. She has had episodes of vertigo before, and now she reports room spinning dizziness which is different from prior. She attempted Marleen maneuvers with no improvement. She woke up today to the sound of her own pulse. She checked her blood pressure and noted it was in the 200s systolic. She presented to the clinic, who sent her to the ER In the ER, workup was significant for CTA head and neck with left vertebral through V3 segment 100% occlusion as well as 75% stenosis of ICA. Case was discussed with teleneurology, who recommends observation and MRI CONSULTS | PROCEDURES Consultations: Neurology contacted by ER provider, vascular surgeon contacted after MRI HOSPITAL COURSE Hospital Course: Patient was placed in observation in the ICU for blood pressure controlling IV medication. Her extreme hypertension resolved prior to starting the nicardipine. Today, she reports 1 episode of dizziness, mild. She underwent MRI which showed no acute infarct. Case was discussed with HAKEEM Spencer with the vascular surgery group at [place]. They recommended that she be discharged on secondary stroke prevention medication and follow-up outpatient with them. She is being discharged on an increased dose of her valsartan, and with a new prescription for aspirin and Lipitor ALLERGIES Allergies Allergy/AdvReac Type Severity Reaction Status Date / Time No Known Drug Allergies Allergy Verified 08/03/24 14:55 MEDICATIONS Ambulatory Orders Medication Instructions Recorded Confirmed aspirin 81 mg tablet,delayed 81 mg PO DAILY #30 tabs 08/04/24 release atorvastatin 40 mg tablet 40 mg PO QPM 30 days #30 tabs 08/04/24 coenzyme Q10 100 mg capsule (Co 100 mg PO DAILY 08/04/24 08/04/24 Q-10) krill oil 500 mg capsule 500 mg PO DAILY 08/04/24 08/04/24 rjphotvu-jvws-kprs 8 mg-folic 400 1 tab PO DAILY 08/04/24 08/04/24 mcg-K 50 mcg-lutein 300 mcg tablet (Century Women 50 Plus) turmeric 400 mg capsule 1,000 mg PO DAILY 08/04/24 08/04/24 valsartan 80 mg tablet (Diovan) 160 mg (2 x 80 mg) PO DAILY 30 08/04/24 08/04/24 days #30 tabs PHYSICAL EXAM AT DISCHARGE General Appearance: positive No acute distress and Alert Eyes Bilateral: positive Normal inspection and PERRL ENT: positive No signs of dehydration Neck: positive No JVD Respiratory: positive Breath sounds nml Cardiovascular: positive Regular rate & rhythm Peripheral Pulses: positive 2+ Abdomen: positive Non-tender Back: positive Nml inspection Skin: positive Color nml Extremities: positive Non-tender Neurologic/Psychiatric: positive Oriented x3 LABS 08/04/24 04:40 08/04/24 04:40 DIAGNOSTIC IMAGING Diagnostic Imaging Results: Final report reviewed Diagnostic Imaging Results Comments: MRI brain no acute infarct FOLLOW UP Follow Up: With PCP, recommend follow-up with vascular surgery TIME SPENT Time Spent in Discharge (Minutes): 35 Discharge Plan Discharge Patient Disposition: Home, Self Care Condition: Stable Medically Cleared Date:: 08/04/24 Prescriptions: New atorvastatin 40 mg Tablet 40 mg PO QPM 30 Days Qty: 30 0RF aspirin 81 mg tablet,delayed release (DR/EC) 81 mg PO DAILY Qty: 30 2RF Continued krill oil 500 mg capsule 500 mg PO DAILY Century Women 50 Plus 8 mg iron-400 mcg-50 mcg tablet 1 tab PO DAILY coenzyme Q10 [Co Q-10] 100 mg capsule 100 mg PO DAILY turmeric 400 mg capsule 1,000 mg PO DAILY Changed valsartan [Diovan] 80 MG tablet 160 mg PO DAILY 30 Days Qty: 30 0RF Diet: Regular Interventions: Discharge Last Done: 08/04/24 13:59 Discharge Checklist - Nursing Last Done: 08/04/24 14:00 Health Concerns: You are a 79-year-old female in excellent health with past medical history of hypertension and vertigo. You came in with symptoms concerning for stroke. Your initial workup included a CT scan which showed a 75% stenosis of the left internal carotid artery by soft plaque and a occlusion of the left vertebral artery from the origin to the V3 segment. These results were called into a neurologist, who recommended you be held overnight and undergo MRI. Your MRI was performed and did not show any acute infarct. I contacted vascular surgery as recommended by the radiologist, who recommends that you follow-up with them in the office. They reiterated that medical management of these occlusions includes a statin and an aspirin. I am sending you home on a very low-dose of aspirin, 81 mg daily, and 40 mg daily Lipitor. I would encourage you follow-up with your primary care provider within 1 to 2 weeks and they will help you establish yourself with vascular surgery. You also had a dangerously high blood pressure when you came into the hospital. This did resolve with the medications they gave you in the ED. I am increasing your dose of valsartan from 80 mg to 260 mg daily. Please keep a record of your blood pressures, and show them to your primary care provider when you follow-up with them Print Language: Spanish Patient Instructions: Aspirin capsules or tablets extended release, Nosebleed Stand Alone Forms: PCP List"
[2024-08-05] MEDS ORDERED: ENOXAPARIN 40 MG/0.4 ML SYRINGE SUBQ SCH (09:00)
== END 2024-08-04 14:00 | disposition home or self-care (01) ==
LOC: ICU 14:49 → ED 14:49 → ICU 21:20
PROVIDERS: ADMIT Nurse Practitioner Acute Care; ATTEND Nurse Practitioner Acute Care